=== PATIENT | male | born 1955 | race Caucasian/White ===

== ENCOUNTER 2018-06-14 15:22 | Emergency (ER) | payer MEDICAID ==
[~2018-06-14 15:22] MED LIST: INSU100V11 SQ; OMEP20CA4 PO
== END 2018-06-14 16:35 | disposition left against medical advice (07) ==
LOC: ER 15:24
DX: Z53.21 Procedure and treatment not carried out due to patient leaving prior to being seen by health care provider (principal)

== ENCOUNTER 2018-06-22 15:08 | Emergency (ER) | payer MEDICAID ==
[~2018-06-22] VITALS: Ht 167.6 cm; Wt 61.0 kg
[2018-06-22] MEDS ORDERED: INSU100V10 SQ (15:22)
--- NOTE | 2018-06-22 15:22 | NUR ---
Dr. Hawkins at bedside to examine patient.
[2018-06-22] MEDS ORDERED: IBUPROFEN 600 MG TABLET PO ONE (15:30)
[2018-06-22] MEDS ORDERED: IBUPROFEN 600 MG TABLET ONE (15:35)
[2018-06-22 15:38] LABS: *BILIRUBIN,URIN NEGATIVE (NEGATIVE); *BLOOD, URINE NEGATIVE (NEGATIVE); *CLARITY,URINE CLEAR (CLEAR); *COLOR,URINE DARK YELLOW (YELLOW); *KETONES,URINE TRACE (NEGATIVE); *PROTEIN,URINE TRACE (NEGATIVE); *UROBILINOGEN,URINE 0.2 E.U./dl (NORMAL); LEUKOCYTE ESTERASE ,URINE NEGATIVE (NEGATIVE); NITRITE, URINE NEGATIVE (NEGATIVE); UGLUCOSE TRACE (NEGATIVE)
[2018-06-22 15:41] LABS: BASOPHILS % (AUTO) 0.6 % (0.0-2.0); EOSINOPHILS % (AUTO) 0.9 % (0.0-7.0); HEMATOCRIT 42.4 % (36.7-47.1); HEMOGLOBIN 14.3 g/dL (12.5-16.3); LYMPHOCYTES # (AUTO) 1.5 K/uL (20.0-40.0); LYMPHOCYTES % (AUTO) 29.7 % (20.5-51.5); MEAN CORPUSCULAR HEMOGLOBIN 28.3 uug (23.8-33.4); MEAN CORPUSCULAR HGB CONC 34 g/dL (32.5-36.3); MEAN CORPUSCULAR VOLUME 83.9 fL (73.0-96.2); MONOCYTES # (AUTO) 0.4 K/uL (2.0-10.0); MONOCYTES % (AUTO) 7.5 % (0.0-11.0); NEUTROPHILS # (AUTO) 3.2 K/uL (1.8-8.9); NEUTROPHILS % (AUTO) 61.3 % (38.5-71.5); PLATELET COUNT (AUTO) 175 K/uL (152-348); RED BLOOD CELL COUNT(AUTO) 5.05 MIL/uL (4.06-5.63); WHITE BLOOD COUNT (AUTO) 5.1 K/uL (3.6-10.2)
[2018-06-22 15:53] LABS: BILIRUBIN,DIRECT 0.2 mg/dL (0.0-0.2); BILIRUBIN,TOTAL 0.8 mg/dL (0.2-1.0); CREATININE 1.3 mg/dL (0.6-1.3); POTASSIUM 4.5 mmol/L (3.5-5.1)
--- NOTE | 2018-06-22 16:31 | NUR ---
Dcd instructions and prescription provided to pt. who verbalized understanding. pt. left room ambulatory, steady gait.
[2018-06-22 16:35] LABS: BACTERIA,URINE FEW /HPF (NONE SEEN); RBC,URINE 0-3 /HPF (0-3); SQUAMOUS EPITHELIAL CELL,UR FEW /HPF (NONE SEEN); WBC,URINE 0-3 /HPF (0-3)
== END 2018-06-22 16:58 | disposition home or self-care (01) ==
LOC: ER 15:10
DX: R10.9 Unspecified abdominal pain (principal); B48.8 Other specified mycoses; E11.9 Type 2 diabetes mellitus without complications; Z88.0 Allergy status to penicillin
CPT/HCPCS: 36415; 83690; 85025; A4663

== ENCOUNTER 2019-02-13 17:38 | Emergency (ER) | payer SELFPAY ==
[~2019-02-13] VITALS: Ht 167.6 cm; Wt 60.8 kg
[~2019-02-13 17:38] MED LIST changes: +INSU100V10 SQ; -INSU100V11 SQ
[2019-02-13] MEDS ORDERED: ONDANSETRON 4 MG/2 ML VIAL ONE (18:14)
[2019-02-13] MEDS ORDERED: MORPHINE SULFATE 4 MG/1 ML DISP.SYRIN ONE (18:14)
[2019-02-13] MEDS ORDERED: ONDANSETRON IV *ER 4 MG/2 ML VIAL IV ONE (18:15)
[2019-02-13] MEDS ORDERED: IV NORMAL SALINE 1000 ML BAG IV ONE ×3 (18:15→19:15)
[2019-02-13] MEDS ORDERED: MORPHINE SULFATE 4 MG/1 ML DISP.SYRIN IV ONE (18:15)
[2019-02-13] MEDS ORDERED: HUMALOG INSULIN SQ (18:21)
[2019-02-13] MEDS ORDERED: INSU100I26 SQ (18:21)
[2019-02-13 18:26] LABS: BASOPHILS % (AUTO) 0.3 % (0.0-2.0); EOSINOPHILS # (AUTO) 0.1 K/uL (0.0-0.7); EOSINOPHILS % (AUTO) 1.8 % (0.0-7.0); HEMATOCRIT 38.4 % (36.7-47.1); HEMOGLOBIN 13.4 g/dL (12.5-16.3); LYMPHOCYTES # (AUTO) 1.3 K/uL (20.0-40.0); LYMPHOCYTES % (AUTO) 26.3 % (20.5-51.5); MEAN CORPUSCULAR HEMOGLOBIN 28.3 uug (23.8-33.4); MEAN CORPUSCULAR HGB CONC 35 g/dL (32.5-36.3); MEAN CORPUSCULAR VOLUME 81.4 fL (73.0-96.2); MONOCYTES # (AUTO) 0.4 K/uL (2.0-10.0); NEUTROPHILS # (AUTO) 3.2 K/uL (1.8-8.9); NEUTROPHILS % (AUTO) 63.6 % (38.5-71.5); PLATELET COUNT (AUTO) 182 K/uL (152-348); RED BLOOD CELL COUNT(AUTO) 4.72 MIL/uL (4.06-5.63); WHITE BLOOD COUNT (AUTO) 5.1 K/uL (3.6-10.2)
[2019-02-13 18:40] LABS: BILIRUBIN,DIRECT 0.2 mg/dL (0.0-0.2); BILIRUBIN,TOTAL 0.7 mg/dL (0.2-1.0); CREATININE 1.2 mg/dL (0.6-1.3); POTASSIUM 4.7 mmol/L (3.5-5.1); TOTAL PROTEIN, SERUM 6.3 g/dL (6.4-8.2)
--- NOTE | 2019-02-13 19:00 | NUR ---
Patient here for c/o constipation and being unable to hold any food or clear liquids down. Patient has hx of gastroparesis. Patient came today for pain in upper abdomen quadrants. Last bowel movement was about 4 days ago, small and soft consistency. Respiratory even and unlabored, no cough no sob. No cardiovascular distress noted, all pulses palpable. Patient in bed at lowest position, sr upx2, call light within reach. Fall precautions implemented per protocol.
[2019-02-13] MEDS ORDERED: PANTOPRAZOLE SODIUM 40 MG VIAL IV ONE (19:15)
[2019-02-13] MEDS ORDERED: PANTOPRAZOLE SODIUM 40 MG VIAL ONE (19:25)
[2019-02-13 19:33] LABS: *BILIRUBIN,URIN NEGATIVE (NEGATIVE); *BLOOD, URINE NEGATIVE (NEGATIVE); *CLARITY,URINE CLEAR (CLEAR); *COLOR,URINE YELLOW (YELLOW); *KETONES,URINE NEGATIVE (NEGATIVE); *UROBILINOGEN,URINE 0.2 E.U./dl (NORMAL); LEUKOCYTE ESTERASE ,URINE NEGATIVE (NEGATIVE); NITRITE, URINE NEGATIVE (NEGATIVE); PH,URINE 6.5 (5.0-8.0); UGLUCOSE 2+ (NEGATIVE)
[2019-02-13 19:39] LABS: WBC,URINE 0-3 /HPF (0-3)
[2019-02-13 19:40] LABS: MUCUS,URINE MODERATE /LPF (0-FEW)
--- NOTE | 2019-02-13 20:01 | NUR ---
Patient transfered to CT, in stable condition.
--- NOTE | 2019-02-13 20:09 | NUR ---
Patient back in room from CT, in stable condition.
--- NOTE | 2019-02-13 21:10 | NUR ---
Patient discharged to home in stable conditon. Written and verbal after care instructions given. Patient verbalizes understanding of instructions. Patient ambulated with stable gait.
[2019-02-13 21:18] VITALS: BP 132/89
== END 2019-02-13 21:19 | disposition home or self-care (01) ==
LOC: ER 17:39
DX: K59.00 Constipation, unspecified (principal); E11.9 Type 2 diabetes mellitus without complications; Z88.0 Allergy status to penicillin; Z79.4 Long term (current) use of insulin; Z79.899 Other long term (current) drug therapy
CPT/HCPCS: 36415; 74176; 80048; 80076; 81001; 83690; 84484; 85025; 93005; 96374; 99284; C9113; 70030-TC; A4663; J2270; J2405; J7030

== ENCOUNTER 2019-03-14 15:45 | Emergency (ER) | payer OTHER ==
[~2019-03-14] VITALS: Ht 167.6 cm; Wt 58.5 kg
[~2019-03-14 15:45] MED LIST changes: +HUMALOG INSULIN SQ; +INSU100I26 SQ; -INSU100V10 SQ; -OMEP20CA4 PO
[2019-03-14] MEDS ORDERED: ONDANSETRON 4 MG/2 ML VIAL IV ONE (16:15)
[2019-03-14] MEDS ORDERED: PANTOPRAZOLE SODIUM 40 MG VIAL IV ONE (16:15)
[2019-03-14] MEDS ORDERED: IV NORMAL SALINE 1000 ML BAG IV ONE (16:15)
[2019-03-14 16:35] LABS: BASOPHILS % (AUTO) 0.5 % (0.0-2.0); EOSINOPHILS # (AUTO) 0.2 K/uL (0.0-0.7); EOSINOPHILS % (AUTO) 3.1 % (0.0-7.0); HEMATOCRIT 40.1 % (36.7-47.1); HEMOGLOBIN 13.3 g/dL (12.5-16.3); LYMPHOCYTES # (AUTO) 1.7 K/uL (20.0-40.0); LYMPHOCYTES % (AUTO) 24.3 % (20.5-51.5); MEAN CORPUSCULAR HEMOGLOBIN 27.1 uug (23.8-33.4); MEAN CORPUSCULAR HGB CONC 33 g/dL (32.5-36.3); MONOCYTES # (AUTO) 0.5 K/uL (2.0-10.0); MONOCYTES % (AUTO) 7.8 % (0.0-11.0); NEUTROPHILS # (AUTO) 4.4 K/uL (1.8-8.9); NEUTROPHILS % (AUTO) 64.3 % (38.5-71.5); PLATELET COUNT (AUTO) 174 K/uL (152-348); WHITE BLOOD COUNT (AUTO) 6.8 K/uL (3.6-10.2)
[2019-03-14 16:37] LABS: CREATININE 1.2 mg/dL (0.6-1.3); POTASSIUM 4.4 mmol/L (3.5-5.1)
[2019-03-14] MEDS ORDERED: ONDANSETRON 4 MG/2 ML VIAL ONE (16:39)
[2019-03-14] MEDS ORDERED: PANTOPRAZOLE SODIUM 40 MG VIAL ONE (16:39)
[2019-03-14 16:43] LABS: BILIRUBIN,DIRECT 0.2 mg/dL (0.0-0.2); TOTAL PROTEIN, SERUM 6.3 g/dL (6.4-8.2)
--- NOTE | 2019-03-14 17:04 | NUR ---
PT IS IN ROOM #2A. DR BRANDON EVALUATED THE PT.
[2019-03-14] MEDS ORDERED: MAG HYDROX/AL HYDROX/SIMETH 30 ML LIQUID UDC PO ONE (17:15)
[2019-03-14] MEDS ORDERED: MAG HYDROX/AL HYDROX/SIMETH 30 ML LIQUID UDC ONE (18:00)
--- NOTE | 2019-03-14 18:45 | NUR ---
PT WAS D/C'd TO HOME. D/C INSTRUCTIONS GIVEN TO THE PT.
[2019-03-14 18:47] VITALS: BP 136/72
== END 2019-03-14 18:48 | disposition home or self-care (01) ==
LOC: ER 15:45
DX: K59.00 Constipation, unspecified (principal); R19.7 Diarrhea, unspecified; E11.9 Type 2 diabetes mellitus without complications; Z88.0 Allergy status to penicillin; Z79.4 Long term (current) use of insulin
CPT/HCPCS: 36415; 74021; 80048; 80076; 83690; 84484; 85025; 85730; 93005; 96361; 96374; 96375; 99284; C9113; J2405; 70030-TC; A4663; J7030

== ENCOUNTER 2019-04-22 16:52 | Emergency (ER) | payer MEDICAID, OTHER ==
[~2019-04-22] VITALS: Ht 165.1 cm; Wt 62.6 kg
[2019-04-22] MEDS ORDERED: IBUPROFEN 600 MG TABLET PO ONE (17:15)
[2019-04-22] MEDS ORDERED: ACETAMINOPHEN 325 MG TABLET PO ONE (17:15)
[2019-04-22] MEDS ORDERED: IBUPROFEN 600 MG TABLET ONE (17:19)
[2019-04-22] MEDS ORDERED: ACETAMINOPHEN ES 500 MG TABLET ONE (17:19)
--- NOTE | 2019-04-22 17:25 | NUR ---
PATIENT WAS SEEN BY MD. XRAYS DONE. MEDS GIVEN ORDERED
--- NOTE | 2019-04-22 19:17 | NUR ---
HAND OFF REPORT GIVEN TO DAMIEN BROWN
[2019-04-22 19:36] VITALS: BP 118/80
--- NOTE | 2019-04-22 19:52 | NUR ---
Patient discharged to home in stable conditon WITH FAMILY TAKING PATIENT HOME. Written and verbal after care instructions given. Patient verbalizes understanding of instructions. WALKED OUT OF ER WITH NO DISTRESS NOTED
== END 2019-04-22 19:53 | disposition home or self-care (01) ==
LOC: ER 16:54
DX: S22.058A Other fracture of T5-T6 vertebra, initial encounter for closed fracture (principal); S22.078A Other fracture of T9-T10 vertebra, initial encounter for closed fracture; E11.9 Type 2 diabetes mellitus without complications; Z88.0 Allergy status to penicillin; Z79.4 Long term (current) use of insulin; W01.0XXA Fall on same level from slipping, tripping and stumbling without subsequent striking against object, initial encounter; Y93.89 Activity, other specified; Y92.89 Other specified places as the place of occurrence of the external cause; Y99.8 Other external cause status
CPT/HCPCS: 71045; 72072; 72100; A4663; A9150

== ENCOUNTER 2019-05-14 14:05 | Emergency (ER) | payer OTHER ==
[~2019-05-14] VITALS: Ht 167.6 cm; Wt 62.1 kg
--- NOTE | 2019-05-14 14:20 | NUR ---
in room 1b
--- NOTE | 2019-05-14 14:27 | NUR ---
seen by Dr. Flores
[2019-05-14] MEDS ORDERED: ONDANSETRON 4 MG/2 ML VIAL IV ONE (14:30)
[2019-05-14] MEDS ORDERED: IV NORMAL SALINE 1000 ML BAG IV ONE (14:30)
--- NOTE | 2019-05-14 14:35 | NUR ---
IV #20 inserted via left AC. blood drawn for labs
--- NOTE | 2019-05-14 14:46 | NUR ---
IV NS 1l started IV and zofran 4mg given IV
[2019-05-14 14:47] LABS: BASOPHILS % (AUTO) 0.6 % (0.0-2.0); EOSINOPHILS # (AUTO) 0.2 K/uL (0.0-0.7); EOSINOPHILS % (AUTO) 2.5 % (0.0-7.0); HEMATOCRIT 40.7 % (36.7-47.1); HEMOGLOBIN 13.6 g/dL (12.5-16.3); LYMPHOCYTES # (AUTO) 1.3 K/uL (20.0-40.0); LYMPHOCYTES % (AUTO) 21.6 % (20.5-51.5); MEAN CORPUSCULAR HEMOGLOBIN 27.4 uug (23.8-33.4); MEAN CORPUSCULAR HGB CONC 33 g/dL (32.5-36.3); MONOCYTES # (AUTO) 0.4 K/uL (2.0-10.0); MONOCYTES % (AUTO) 7.1 % (0.0-11.0); NEUTROPHILS # (AUTO) 4.2 K/uL (1.8-8.9); NEUTROPHILS % (AUTO) 68.2 % (38.5-71.5); PLATELET COUNT (AUTO) 216 K/uL (152-348); RED BLOOD CELL COUNT(AUTO) 4.96 MIL/uL (4.06-5.63); WHITE BLOOD COUNT (AUTO) 6.2 K/uL (3.6-10.2)
[2019-05-14] MEDS ORDERED: ONDANSETRON 4 MG/2 ML VIAL ONE (14:47)
[2019-05-14 14:51] LABS: CREATININE 1.2 mg/dL (0.6-1.3); POTASSIUM 4.2 mmol/L (3.5-5.1)
[2019-05-14 14:58] LABS: BILIRUBIN,DIRECT 0.1 mg/dL (0.0-0.2); BILIRUBIN,TOTAL 0.5 mg/dL (0.2-1.0); TOTAL PROTEIN, SERUM 6.8 g/dL (6.4-8.2)
--- NOTE | 2019-05-14 15:40 | NUR ---
moved to 2b , denies nausea and abd pain
--- NOTE | 2019-05-14 16:19 | NUR ---
ambulated to bathroom/ voided
--- NOTE | 2019-05-14 16:20 | NUR ---
exit care, homegoing instructions and prescription given to patient. discharged
[2019-05-14 16:23] VITALS: BP 134/73
== END 2019-05-14 16:23 | disposition home or self-care (01) ==
LOC: ER 14:05
DX: R10.13 Epigastric pain (principal); R11.0 Nausea; R19.7 Diarrhea, unspecified; E11.9 Type 2 diabetes mellitus without complications; Z88.0 Allergy status to penicillin; Z79.4 Long term (current) use of insulin
CPT/HCPCS: 36415; 80048; 80076; 83690; 85025; 96361; 96374; 99283; J2405; A4663; J7030

== ENCOUNTER 2019-06-21 22:32 | Emergency (ER) | payer OTHER ==
[~2019-06-21] VITALS: Ht 167.6 cm; Wt 61.7 kg
[2019-06-21 22:58] LABS: BASOPHILS % (AUTO) 0.4 % (0.0-2.0); EOSINOPHILS # (AUTO) 0.1 K/uL (0.0-0.7); EOSINOPHILS % (AUTO) 1.4 % (0.0-7.0); HEMATOCRIT 41.1 % (36.7-47.1); HEMOGLOBIN 14.1 g/dL (12.5-16.3); LYMPHOCYTES # (AUTO) 2.2 K/uL (20.0-40.0); LYMPHOCYTES % (AUTO) 34.3 % (20.5-51.5); MEAN CORPUSCULAR HEMOGLOBIN 28.4 uug (23.8-33.4); MEAN CORPUSCULAR HGB CONC 34 g/dL (32.5-36.3); MEAN CORPUSCULAR VOLUME 82.7 fL (73.0-96.2); MONOCYTES # (AUTO) 0.5 K/uL (2.0-10.0); MONOCYTES % (AUTO) 8.4 % (0.0-11.0); NEUTROPHILS # (AUTO) 3.5 K/uL (1.8-8.9); NEUTROPHILS % (AUTO) 55.5 % (38.5-71.5); PLATELET COUNT (AUTO) 186 K/uL (152-348); RED BLOOD CELL COUNT(AUTO) 4.97 MIL/uL (4.06-5.63); WHITE BLOOD COUNT (AUTO) 6.3 K/uL (3.6-10.2)
--- NOTE | 2019-06-21 22:58 | NUR ---
Transferred to CT in stable condition.
--- NOTE | 2019-06-21 23:15 | NUR ---
Patient back in room from CT in stable condition.
[2019-06-21 23:33] LABS: CREATININE 1.4 mg/dL (0.6-1.3); POTASSIUM 3.8 mmol/L (3.5-5.1)
[2019-06-21 23:39] LABS: BILIRUBIN,DIRECT 0.1 mg/dL (0.0-0.2); BILIRUBIN,TOTAL 0.5 mg/dL (0.2-1.0); TOTAL PROTEIN, SERUM 7.2 g/dL (6.4-8.2)
[2019-06-21] MEDS ORDERED: LORAZEPAM 2 MG/1 ML VIAL ONE (23:43)
[2019-06-21] MEDS ORDERED: LORAZEPAM 2 MG/1 ML VIAL IV ONE (23:45)
--- NOTE | 2019-06-22 00:12 | NUR ---
Patient discharged to home in stable conditon. Written and verbal after care instructions given. Patient verbalizes understanding of instructions. Patient ambulated with stable gait. Instructed patient that he may not drive. Mother stated she will be driving them home.
[2019-06-22 00:14] VITALS: BP 122/87
== END 2019-06-22 00:15 | disposition home or self-care (01) ==
LOC: ER 22:32
DX: M43.6 Torticollis (principal); G44.209 Tension-type headache, unspecified, not intractable; E11.9 Type 2 diabetes mellitus without complications; Z88.0 Allergy status to penicillin; Z79.4 Long term (current) use of insulin
CPT/HCPCS: 36415; 70450; 71045; 72125; 80048; 80076; 84484; 85025; 85651; 85730; 93005; 96374; 99284; J2060; 70030-TC; A4663

== ENCOUNTER 2019-07-25 14:10 | Emergency (ER) | payer MEDICARE, OTHER ==
[~2019-07-25] VITALS: Ht 167.6 cm; Wt 62.1 kg
[2019-07-25 14:53] LABS: *BILIRUBIN,URIN NEGATIVE (NEGATIVE); *BLOOD, URINE NEGATIVE (NEGATIVE); *CLARITY,URINE CLEAR (CLEAR); *COLOR,URINE YELLOW (YELLOW); *KETONES,URINE NEGATIVE (NEGATIVE); *UROBILINOGEN,URINE 0.2 E.U./dl (NORMAL); LEUKOCYTE ESTERASE ,URINE NEGATIVE (NEGATIVE); NITRITE, URINE NEGATIVE (NEGATIVE); PH,URINE 6.5 (5.0-8.0); UGLUCOSE TRACE (NEGATIVE)
[2019-07-25 15:00] LABS: WBC,URINE 0-3 /HPF (0-3)
== END 2019-07-25 15:25 | disposition home or self-care (01) ==
LOC: ER 14:11
DX: K40.90 Unilateral inguinal hernia, without obstruction or gangrene, not specified as recurrent (principal); E11.9 Type 2 diabetes mellitus without complications; Z88.0 Allergy status to penicillin; Z79.4 Long term (current) use of insulin
CPT/HCPCS: A4663

== ENCOUNTER 2020-03-11 05:35 | Emergency (ER) | payer OTHER ==
[~2020-03-11] VITALS: Ht 167.6 cm; Wt 58.5 kg
--- NOTE | 2020-03-11 05:42 | NUR ---
Dr. Valdez at bedside for MSE.
--- NOTE | 2020-03-11 05:50 | NUR ---
Xray at bedside.
--- NOTE | 2020-03-11 06:27 | NUR ---
Patient discharged to home in stable condition. Written and verbal after care instructions given. Patient verbalizes understanding of instructions. Stressed follow up or return to ER for worsening s/s. Patient ambulated out of ER with steady gait, no acute signs of distress, VSS, all belongings taken.
[2020-03-11 06:28] VITALS: BP 130/78
== END 2020-03-11 06:28 | disposition home or self-care (01) ==
LOC: ER 05:39
DX: K56.41 Fecal impaction (principal); E11.43 Type 2 diabetes mellitus with diabetic autonomic (poly)neuropathy; K31.84 Gastroparesis; Z79.4 Long term (current) use of insulin; G20 Parkinson's disease
CPT/HCPCS: A4663

== ENCOUNTER 2020-11-05 20:06 | Emergency (ER) | payer OTHER ==
[~2020-11-05] VITALS: Ht 167.6 cm; Wt 59.0 kg
--- NOTE | 2020-11-05 20:11 | NUR ---
Patient BIB [facility] from home for c/o constipation x36hrs. Patient states he has tried laxative such as suppository and po laxative but not effective. Dr Valdez into eval patient.
[2020-11-05] MEDS ORDERED: PANTOPRAZOLE SODIUM 40 MG VIAL IV ONE (20:15)
[2020-11-05] MEDS ORDERED: ONDANSETRON 4 MG/2 ML VIAL IV ONE (20:15)
[2020-11-05] MEDS ORDERED: ONDANSETRON 4 MG/2 ML VIAL ONE (20:28)
[2020-11-05] MEDS ORDERED: PANTOPRAZOLE SODIUM 40 MG VIAL ONE (20:28)
[2020-11-05 20:29] LABS: BASOPHILS % (AUTO) 0.4 % (0.0-2.0); EOSINOPHILS # (AUTO) 0.1 K/uL (0.0-0.7); EOSINOPHILS % (AUTO) 0.9 % (0.0-7.0); HEMATOCRIT 41.5 % (36.7-47.1); HEMOGLOBIN 14.2 g/dL (12.5-16.3); LYMPHOCYTES # (AUTO) 1.2 K/uL (20.0-40.0); LYMPHOCYTES % (AUTO) 19.5 % (20.5-51.5); MEAN CORPUSCULAR HEMOGLOBIN 27.9 uug (23.8-33.4); MEAN CORPUSCULAR HGB CONC 34 g/dL (32.5-36.3); MEAN CORPUSCULAR VOLUME 81.7 fL (73.0-96.2); MONOCYTES # (AUTO) 0.5 K/uL (2.0-10.0); MONOCYTES % (AUTO) 7.4 % (0.0-11.0); NEUTROPHILS # (AUTO) 4.5 K/uL (1.8-8.9); NEUTROPHILS % (AUTO) 71.8 % (38.5-71.5); PLATELET COUNT (AUTO) 218 K/uL (152-348); RED BLOOD CELL COUNT(AUTO) 5.08 MIL/uL (4.06-5.63); WHITE BLOOD COUNT (AUTO) 6.3 K/uL (3.6-10.2)
[2020-11-05 20:39] LABS: BILIRUBIN,DIRECT 0.2 mg/dL (0.0-0.2); BILIRUBIN,TOTAL 1.1 mg/dL (0.2-1.0); CREATININE 1.4 mg/dL (0.6-1.3); POTASSIUM 4.4 mmol/L (3.5-5.1)
[2020-11-05] MEDS ORDERED: IV NORMAL SALINE 1000 ML BAG IV ONE (20:45)
[2020-11-05 21:22] LABS: ABG BASE EXCESS -2.2 mmol/L; ABG HCO3 21.9 mmol/L; ABG PCO2 35.5 mmHg (35.0-45.0); ABG PH 7.408 (7.350-7.450); ABG PO2 85.8 mmHg (75.0-100.0); ABG SITE LEFT RADIAL; ABG TOTAL HEMOGLOBIN 12.9 G/dL (13.5-18.0); COHb 1.3 % (0.5-1.5); MetHb 0.3 % (0.0-1.5); O2Hb 95.2 % (94.0-97.0); VENT MODE ROOM AIR
--- NOTE | 2020-11-05 21:25 | NUR ---
Patient out of unit for ct scan via wheelchair.
--- NOTE | 2020-11-05 21:35 | NUR ---
Patient back from ct scan with no distress noted.
[2020-11-05 21:46] LABS: *BILIRUBIN,URIN NEGATIVE (NEGATIVE); *BLOOD, URINE NEGATIVE (NEGATIVE); *CLARITY,URINE CLEAR (CLEAR); *COLOR,URINE YELLOW (YELLOW); *KETONES,URINE 1+ (NEGATIVE); *UROBILINOGEN,URINE 0.2 E.U./dl (NORMAL); LEUKOCYTE ESTERASE ,URINE NEGATIVE (NEGATIVE); NITRITE, URINE NEGATIVE (NEGATIVE); UGLUCOSE 2+ (NEGATIVE)
--- NOTE | 2020-11-05 22:04 | NUR ---
Patient able to have BM after Dr Valdez disimpacted pateint.
--- NOTE | 2020-11-05 22:28 | NUR ---
IV removed. Catheter intact and site benign. Pressure and 4x4 gauze applied to site. No bleeding noted.
[2020-11-05] MEDS ORDERED: MAGNESIUM CITRATE 296 ML BOTTLE PO ONE (22:30)
[2020-11-05] MEDS ORDERED: MAGNESIUM CITRATE 296 ML BOTTLE ONE (22:30)
--- NOTE | 2020-11-05 22:32 | NUR ---
Patient discharged to home in stable condition with patient mother taking patient home. Written and verbal after care instructions given. Patient verbalizes understanding of instructions. Stressed follow up or return to ER for worsening s/s.
[2020-11-05 22:33] VITALS: BP 150/82
== END 2020-11-05 22:36 | disposition home or self-care (01) ==
LOC: ER 20:08
DX: K56.41 Fecal impaction (principal); K21.9 Gastro-esophageal reflux disease without esophagitis; R11.10 Vomiting, unspecified; E11.65 Type 2 diabetes mellitus with hyperglycemia; Z79.4 Long term (current) use of insulin; Z88.0 Allergy status to penicillin; E11.43 Type 2 diabetes mellitus with diabetic autonomic (poly)neuropathy; K31.84 Gastroparesis; G20 Parkinson's disease
CPT/HCPCS: 36415; 36600; 71045; 74176; 80048; 80076; 81003; 82009; 83690; 84484; 85025; 93005; 96374; 96375; 99285; C9113; J2405; 70030-TC; A4663; J7030

== ENCOUNTER 2020-11-18 05:05 | Emergency (ER) | payer OTHER ==
[~2020-11-18] VITALS: Ht 167.6 cm; Wt 63.5 kg
[2020-11-18] MEDS ORDERED: LORAZEPAM 2 MG/1 ML VIAL IM ONE (05:30)
[2020-11-18] MEDS ORDERED: FAMOTIDINE 20 MG TABLET PO ONE (05:30)
[2020-11-18] MEDS ORDERED: ONDANSETRON ODT 4 MG TAB.RAPDIS SL ONE (05:30)
[2020-11-18] MEDS ORDERED: ASPIRIN 325 MG TABLET PO ONE (05:30)
[2020-11-18] MEDS ORDERED: LORAZEPAM 2 MG/1 ML VIAL ONE (05:35)
[2020-11-18] MEDS ORDERED: ASPIRIN 325 MG TABLET ONE (05:37)
[2020-11-18] MEDS ORDERED: ONDANSETRON ODT 4 MG TAB.RAPDIS ONE (05:37)
[2020-11-18] MEDS ORDERED: FAMOTIDINE 20 MG TABLET ONE (05:37)
[2020-11-18 05:42] LABS: BASOPHILS % (AUTO) 0.4 % (0.0-2.0); EOSINOPHILS # (AUTO) 0.1 K/uL (0.0-0.7); HEMATOCRIT 41.7 % (36.7-47.1); HEMOGLOBIN 14.4 g/dL (12.5-16.3); LYMPHOCYTES # (AUTO) 2.1 K/uL (20.0-40.0); LYMPHOCYTES % (AUTO) 30.7 % (20.5-51.5); MEAN CORPUSCULAR HEMOGLOBIN 28.3 uug (23.8-33.4); MEAN CORPUSCULAR HGB CONC 35 g/dL (32.5-36.3); MEAN CORPUSCULAR VOLUME 81.9 fL (73.0-96.2); MONOCYTES # (AUTO) 0.6 K/uL (2.0-10.0); NEUTROPHILS # (AUTO) 3.9 K/uL (1.8-8.9); NEUTROPHILS % (AUTO) 58.9 % (38.5-71.5); PLATELET COUNT (AUTO) 224 K/uL (152-348); RED BLOOD CELL COUNT(AUTO) 5.09 MIL/uL (4.06-5.63); WHITE BLOOD COUNT (AUTO) 6.7 K/uL (3.6-10.2)
[2020-11-18 05:56] LABS: CREATININE 1.4 mg/dL (0.6-1.3)
[2020-11-18 06:12] LABS: BILIRUBIN,DIRECT 0.2 mg/dL (0.0-0.2); BILIRUBIN,TOTAL 0.5 mg/dL (0.2-1.0); TOTAL PROTEIN, SERUM 7.3 g/dL (6.4-8.2)
[2020-11-18] MEDS ORDERED: IV NORMAL SALINE 500 ML IV ONE (06:15)
[2020-11-18] MEDS ORDERED: INSULIN REGULAR, HUMAN 300 UNIT/3 ML VIAL SQ ONE (07:15)
[2020-11-18] MEDS ORDERED: INSULIN REGULAR, HUMAN 300 UNIT/3 ML VIAL ONE (07:17)
[2020-11-18] MEDS ORDERED: NITROGLYCERIN 0.4 MG/TAB BOTTLE SL ONE ×2 (07:23→07:28)
--- NOTE | 2020-11-18 07:25 | NUR ---
PT IS IN ROOM #1B. DR JONES EVALUATED THE PT. PT WAS MEDICATED ACCORDING TO ER MD ORDERS. PT TOLERATED TO MEDICATION WITHOUT COMPLICATIONS.
[2020-11-18] MEDS ORDERED: TRAM50TA PO (08:08)
[2020-11-18] MEDS ORDERED: PANTOPRAZOLE SODIUM 40 MG VIAL IV ONE (10:00)
[2020-11-18] MEDS ORDERED: PANTOPRAZOLE SODIUM 40 MG VIAL ONE (10:10)
--- NOTE | 2020-11-18 10:31 | NUR ---
PT WAS D/C'd TO HOME. D/C INSTRUCTIONS GIVEN TO THE PT BY DR JONES.
[2020-11-18 10:32] VITALS: BP 115/69
[2020-11-19] MEDS ORDERED: CARB-93 PO (13:02)
[2020-11-19] MEDS ORDERED: LIDO30AD10 TD (14:10)
== END 2020-11-18 10:33 | disposition home or self-care (01) ==
LOC: ER 05:06
DX: R10.13 Epigastric pain (principal); R07.89 Other chest pain; E11.65 Type 2 diabetes mellitus with hyperglycemia; G20 Parkinson's disease; K44.9 Diaphragmatic hernia without obstruction or gangrene; Z79.4 Long term (current) use of insulin; Z88.0 Allergy status to penicillin
CPT/HCPCS: 36415; 71045; 80048; 80076; 82009; 82962 ×2; 83880; 84484; 85025; 85379; 85730; 87426; 96361; 96372; 96374; 96375; 99285; C9113; J1815; J2060; 70030-TC; 93005; A4663; J7040; Q0162

== ENCOUNTER 2020-11-19 12:49 | Emergency (ER) | payer OTHER ==
[~2020-11-19] VITALS: Ht 167.6 cm; Wt 61.2 kg
[2020-11-19] MEDS ORDERED: CARB-93 PO (13:02)
--- NOTE | 2020-11-19 13:08 | NUR ---
at bedside for assessment
[2020-11-19] MEDS ORDERED: ACETAMINOPHEN 325 MG TABLET PO ONE (13:15)
[2020-11-19] MEDS ORDERED: LIDOCAINE 5% PATCH TD ONE ×2 (13:15→13:18)
[2020-11-19] MEDS ORDERED: ACETAMINOPHEN 325 MG TABLET ONE (13:17)
--- NOTE | 2020-11-19 13:20 | NUR ---
laceration to right side of head irrigated with normal saline
[2020-11-19] MEDS ORDERED: LIDO30AD10 TD (14:10)
--- NOTE | 2020-11-19 14:22 | NUR ---
Patient discharged to home in stable condition. Patient able to ambulate with steady gait, states ihs mother will pick him up. Written and verbal after care instructions given. Patient verbalizes understanding of instructions. Stressed follow up or return to ER for worsening s/s.
[2020-11-19 14:26] VITALS: BP 100/65
[2020-11-20] MEDS ORDERED: OXYC-128 PO (21:25)
== END 2020-11-19 14:24 | disposition home or self-care (01) ==
LOC: ER 12:51
DX: S00.93XA Contusion of unspecified part of head, initial encounter (principal); S20.211A Contusion of right front wall of thorax, initial encounter; W18.39XA Other fall on same level, initial encounter; Y93.89 Activity, other specified; Y92.89 Other specified places as the place of occurrence of the external cause; Y99.8 Other external cause status; G20 Parkinson's disease; K21.9 Gastro-esophageal reflux disease without esophagitis; E11.43 Type 2 diabetes mellitus with diabetic autonomic (poly)neuropathy; K31.84 Gastroparesis; Z88.0 Allergy status to penicillin; Z79.899 Other long term (current) drug therapy; Z79.4 Long term (current) use of insulin
CPT/HCPCS: 70450; 71101; A4217; A4663

== ENCOUNTER 2020-11-20 17:49 | Emergency (ER) | payer OTHER ==
[~2020-11-20] VITALS: Ht 167.6 cm; Wt 59.0 kg
[~2020-11-20 17:49] MED LIST changes: +CARB-93 PO; +LIDO30AD10 TD
--- NOTE | 2020-11-20 18:34 | NUR ---
Dr Romero at the bedside for MSE.
[2020-11-20] MEDS ORDERED: INSULIN REGULAR, HUMAN 300 UNIT/3 ML VIAL IV ONE (18:45)
[2020-11-20] MEDS ORDERED: IV NORMAL SALINE 1000 ML BAG IV ONE (18:45)
[2020-11-20] MEDS ORDERED: LORAZEPAM 2 MG/1 ML VIAL IV ONE (18:45)
--- NOTE | 2020-11-20 18:58 | NUR ---
Pt out of ER for xray.
--- NOTE | 2020-11-20 19:00 | NUR ---
Received patient from AM nurse.
[2020-11-20] MEDS ORDERED: LORAZEPAM 2 MG/1 ML VIAL ONE (19:09)
[2020-11-20] MEDS ORDERED: INSULIN REGULAR, HUMAN 300 UNIT/3 ML VIAL ONE (19:10)
[2020-11-20 19:39] LABS: BASOPHILS % (AUTO) 0.3 % (0.0-2.0); EOSINOPHILS # (AUTO) 0.1 K/uL (0.0-0.7); EOSINOPHILS % (AUTO) 0.7 % (0.0-7.0); HEMATOCRIT 40.7 % (36.7-47.1); HEMOGLOBIN 14.2 g/dL (12.5-16.3); LYMPHOCYTES # (AUTO) 1.7 K/uL (20.0-40.0); LYMPHOCYTES % (AUTO) 21.2 % (20.5-51.5); MEAN CORPUSCULAR HEMOGLOBIN 28.7 uug (23.8-33.4); MEAN CORPUSCULAR HGB CONC 35 g/dL (32.5-36.3); MEAN CORPUSCULAR VOLUME 82.1 fL (73.0-96.2); MONOCYTES # (AUTO) 0.6 K/uL (2.0-10.0); MONOCYTES % (AUTO) 7.3 % (0.0-11.0); NEUTROPHILS # (AUTO) 5.6 K/uL (1.8-8.9); NEUTROPHILS % (AUTO) 70.5 % (38.5-71.5); PLATELET COUNT (AUTO) 242 K/uL (152-348); RED BLOOD CELL COUNT(AUTO) 4.96 MIL/uL (4.06-5.63)
[2020-11-20 19:47] LABS: BILIRUBIN,DIRECT 0.2 mg/dL (0.0-0.2); BILIRUBIN,TOTAL 0.7 mg/dL (0.2-1.0); CREATININE 1.4 mg/dL (0.6-1.3); POTASSIUM 5.1 mmol/L (3.5-5.1)
[2020-11-20 20:59] LABS: *BILIRUBIN,URIN NEGATIVE (NEGATIVE); *BLOOD, URINE NEGATIVE (NEGATIVE); *CLARITY,URINE CLEAR (CLEAR); *COLOR,URINE YELLOW (YELLOW); *KETONES,URINE 2+ (NEGATIVE); *UROBILINOGEN,URINE 0.2 E.U./dl (NORMAL); LEUKOCYTE ESTERASE ,URINE NEGATIVE (NEGATIVE); NITRITE, URINE NEGATIVE (NEGATIVE); PH,URINE 5.5 (5.0-8.0); UGLUCOSE 3+ (NEGATIVE)
[2020-11-20 21:22] VITALS: BP 122/62
[2020-11-20] MEDS ORDERED: OXYC-128 PO (21:25)
--- NOTE | 2020-11-20 21:59 | NUR ---
Patient discharged to home in stable condition. A&Ox4. Written and verbal after care instructions given. Patient verbalizes understanding of instructions. Stressed follow up or return to ER for worsening s/s. Belongings with patient.
== END 2020-11-20 21:40 | disposition home or self-care (01) ==
LOC: ER 17:51
DX: E11.65 Type 2 diabetes mellitus with hyperglycemia (principal); E11.43 Type 2 diabetes mellitus with diabetic autonomic (poly)neuropathy; K31.84 Gastroparesis; Z79.4 Long term (current) use of insulin; G20 Parkinson's disease; K21.9 Gastro-esophageal reflux disease without esophagitis; R26.81 Unsteadiness on feet; Z88.0 Allergy status to penicillin; Z79.899 Other long term (current) drug therapy; R82.4 Acetonuria; K59.00 Constipation, unspecified; R53.1 Weakness; M54.9 Dorsalgia, unspecified; R53.83 Other fatigue; Z91.81 History of falling
CPT/HCPCS: 36415; 72072; 72100; 72170; 73502; 80048; 80076; 81003; 82009; 82962; 83690; 85025; 87086; 93005; 96372; 96374; 99285; J1815; J2060; A4663; J7030

== ENCOUNTER 2020-11-25 22:20 | Emergency (ER) | payer OTHER ==
[~2020-11-25] VITALS: Ht 165.1 cm; Wt 59.0 kg
[~2020-11-25 22:20] MED LIST changes: +OXYC-128 PO
[2020-11-25] MEDS ORDERED: IV NORMAL SALINE 1000 ML BAG IV ONE (22:45)
[2020-11-25 22:52] LABS: BASOPHILS % (AUTO) 0.5 % (0.0-2.0); EOSINOPHILS # (AUTO) 0.1 K/uL (0.0-0.7); EOSINOPHILS % (AUTO) 1.1 % (0.0-7.0); HEMATOCRIT 38.6 % (36.7-47.1); HEMOGLOBIN 13.2 g/dL (12.5-16.3); LYMPHOCYTES # (AUTO) 1.4 K/uL (20.0-40.0); LYMPHOCYTES % (AUTO) 24.6 % (20.5-51.5); MEAN CORPUSCULAR HGB CONC 34 g/dL (32.5-36.3); MEAN CORPUSCULAR VOLUME 81.7 fL (73.0-96.2); MONOCYTES # (AUTO) 0.5 K/uL (2.0-10.0); MONOCYTES % (AUTO) 9.3 % (0.0-11.0); NEUTROPHILS # (AUTO) 3.8 K/uL (1.8-8.9); NEUTROPHILS % (AUTO) 64.5 % (38.5-71.5); PLATELET COUNT (AUTO) 240 K/uL (152-348); RED BLOOD CELL COUNT(AUTO) 4.73 MIL/uL (4.06-5.63); WHITE BLOOD COUNT (AUTO) 5.9 K/uL (3.6-10.2)
[2020-11-25] MEDS: LORAZEPAM 2 MG/1 ML VIAL IV ONE ×2 (22:54→22:57)
[2020-11-25] MEDS ORDERED: LORAZEPAM 2 MG/1 ML VIAL ONE (22:59)
[2020-11-25] MEDS ORDERED: HYDROCODONE/APAP 5-325MG TABLET PO ONE (23:00)
[2020-11-25 23:03] LABS: CREATININE 1.3 mg/dL (0.6-1.3); POTASSIUM 4.7 mmol/L (3.5-5.1)
[2020-11-25 23:09] LABS: BILIRUBIN,DIRECT 0.1 mg/dL (0.0-0.2); BILIRUBIN,TOTAL 0.5 mg/dL (0.2-1.0); TOTAL PROTEIN, SERUM 6.7 g/dL (6.4-8.2)
[2020-11-25] MEDS ORDERED: HYDROCODONE/APAP 5-325MG TABLET ONE (23:14)
--- NOTE | 2020-11-26 01:34 | NUR ---
Patient discharged to home in stable condition. Written and verbal after care instructions given. Patient and mother verbalizes understanding of instructions. Stressed follow up or return to ER for worsening s/s.
== END 2020-11-26 01:35 | disposition home or self-care (01) ==
LOC: ER 22:24
DX: F41.9 Anxiety disorder, unspecified (principal); E86.0 Dehydration; K59.00 Constipation, unspecified; E11.65 Type 2 diabetes mellitus with hyperglycemia; E11.43 Type 2 diabetes mellitus with diabetic autonomic (poly)neuropathy; K31.84 Gastroparesis; Z79.4 Long term (current) use of insulin; Z88.0 Allergy status to penicillin; G20 Parkinson's disease
CPT/HCPCS: 36415; 71045; 80048; 80076; 82962; 84484; 85025; 93005; 96361; 96374; 99285; J2060; 70030-TC; A4663; J7030

== ENCOUNTER 2020-12-02 14:33 | Emergency (ER) | payer OTHER ==
[~2020-12-02] VITALS: Ht 167.6 cm; Wt 61.2 kg
--- NOTE | 2020-12-02 15:03 | NUR ---
PT IS IN ROOM #2B. DR CLARKE EVALUATED THE PT.
[2020-12-02 15:15] LABS: BASOPHILS % (AUTO) 0.5 % (0.0-2.0); EOSINOPHILS # (AUTO) 0.1 K/uL (0.0-0.7); EOSINOPHILS % (AUTO) 0.8 % (0.0-7.0); HEMATOCRIT 42.2 % (36.7-47.1); HEMOGLOBIN 14.2 g/dL (12.5-16.3); LYMPHOCYTES # (AUTO) 0.9 K/uL (20.0-40.0); LYMPHOCYTES % (AUTO) 14.9 % (20.5-51.5); MEAN CORPUSCULAR HGB CONC 34 g/dL (32.5-36.3); MEAN CORPUSCULAR VOLUME 82.9 fL (73.0-96.2); MONOCYTES # (AUTO) 0.3 K/uL (2.0-10.0); MONOCYTES % (AUTO) 5.5 % (0.0-11.0); NEUTROPHILS # (AUTO) 4.9 K/uL (1.8-8.9); NEUTROPHILS % (AUTO) 78.3 % (38.5-71.5); PLATELET COUNT (AUTO) 245 K/uL (152-348); RED BLOOD CELL COUNT(AUTO) 5.09 MIL/uL (4.06-5.63); WHITE BLOOD COUNT (AUTO) 6.3 K/uL (3.6-10.2)
[2020-12-02 15:24] LABS: BILIRUBIN,DIRECT 0.2 mg/dL (0.0-0.2); BILIRUBIN,TOTAL 0.7 mg/dL (0.2-1.0); CREATININE 1.4 mg/dL (0.6-1.3); POTASSIUM 4.6 mmol/L (3.5-5.1); TOTAL PROTEIN, SERUM 6.8 g/dL (6.4-8.2)
[2020-12-02 16:04] LABS: ABG BASE EXCESS 2.4 mmol/L; ABG HCO3 26.3 mmol/L; ABG PCO2 38.3 mmHg (35.0-45.0); ABG PH 7.454 (7.350-7.450); ABG PO2 95.2 mmHg (75.0-100.0); ABG SITE LEFT RADIAL; ABG TOTAL HEMOGLOBIN 13.6 G/dL (13.5-18.0); COHb 1.2 % (0.5-1.5); MetHb 0.2 % (0.0-1.5); O2Hb 96.2 % (94.0-97.0)
[2020-12-02] MEDS ORDERED: POLY17PO4 PO (16:17)
[2020-12-02] MEDS ORDERED: ACET-2154 PO (16:18)
[2020-12-02] MEDS ORDERED: LANS30CA54 PO (16:20)
--- NOTE | 2020-12-02 16:36 | NUR ---
PT WAS D/C'd TO HOME. D/C INSTRUCTIONS GIVEN TO THE PT BY DR CLARKE.
[2020-12-02 16:37] VITALS: BP 129/75
== END 2020-12-02 16:37 | disposition home or self-care (01) ==
LOC: ER 14:35
DX: K59.00 Constipation, unspecified (principal); K21.9 Gastro-esophageal reflux disease without esophagitis; E11.65 Type 2 diabetes mellitus with hyperglycemia; Z79.4 Long term (current) use of insulin; E11.43 Type 2 diabetes mellitus with diabetic autonomic (poly)neuropathy; K31.84 Gastroparesis; Z88.0 Allergy status to penicillin; G20 Parkinson's disease; E87.3 Alkalosis; G89.29 Other chronic pain; F41.9 Anxiety disorder, unspecified
CPT/HCPCS: 36415; 36600; 70030-TC; 71045; 74021; 83690; 85025; 93005; A4663

== ENCOUNTER 2020-12-22 22:59 | Emergency (ER) | payer OTHER ==
[~2020-12-22] VITALS: Ht 167.6 cm; Wt 59.0 kg
[~2020-12-22 22:59] MED LIST changes: +ACET-2154 PO; +LANS30CA54 PO; +POLY17PO4 PO
--- NOTE | 2020-12-22 23:13 | NUR ---
Dr. Man at bedside for MSE.
[2020-12-22] MEDS ORDERED: LORAZEPAM 2 MG/1 ML VIAL ONE (23:27)
[2020-12-22] MEDS ORDERED: ONDANSETRON 4 MG/2 ML VIAL ONE (23:28)
[2020-12-22] MEDS ORDERED: HYDROMORPHONE 1 MG/1 ML DISP.SYRIN ONE (23:28)
[2020-12-22] MEDS ORDERED: HYDROMORPHONE 1 MG/1 ML DISP.SYRIN IV ONE (23:30)
[2020-12-22] MEDS ORDERED: ONDANSETRON 4 MG/2 ML VIAL IV ONE (23:30)
[2020-12-22] MEDS ORDERED: LORAZEPAM 2 MG/1 ML VIAL IV ONE (23:30)
[2020-12-22] MEDS ORDERED: IV NORMAL SALINE 1000 ML BAG IV ONE (23:30)
[2020-12-22 23:39] LABS: BASOPHILS % (AUTO) 0.5 % (0.0-2.0); EOSINOPHILS # (AUTO) 0.1 K/uL (0.0-0.7); EOSINOPHILS % (AUTO) 0.9 % (0.0-7.0); HEMATOCRIT 39.9 % (36.7-47.1); HEMOGLOBIN 13.3 g/dL (12.5-16.3); LYMPHOCYTES % (AUTO) 31.2 % (20.5-51.5); MEAN CORPUSCULAR HEMOGLOBIN 27.5 uug (23.8-33.4); MEAN CORPUSCULAR HGB CONC 33 g/dL (32.5-36.3); MEAN CORPUSCULAR VOLUME 82.7 fL (73.0-96.2); MONOCYTES # (AUTO) 0.6 K/uL (2.0-10.0); MONOCYTES % (AUTO) 8.6 % (0.0-11.0); NEUTROPHILS # (AUTO) 3.8 K/uL (1.8-8.9); NEUTROPHILS % (AUTO) 58.8 % (38.5-71.5); PLATELET COUNT (AUTO) 200 K/uL (152-348); RED BLOOD CELL COUNT(AUTO) 4.82 MIL/uL (4.06-5.63); WHITE BLOOD COUNT (AUTO) 6.5 K/uL (3.6-10.2)
[2020-12-22 23:43] LABS: CREATININE 1.2 mg/dL (0.6-1.3); POTASSIUM 3.6 mmol/L (3.5-5.1)
[2020-12-22 23:49] LABS: BILIRUBIN,DIRECT 0.1 mg/dL (0.0-0.2); BILIRUBIN,TOTAL 0.4 mg/dL (0.2-1.0); TOTAL PROTEIN, SERUM 6.8 g/dL (6.4-8.2)
--- NOTE | 2020-12-22 23:50 | NUR ---
Pt out of ER for CT.
--- NOTE | 2020-12-23 00:02 | NUR ---
PT back to ER from CT.
--- NOTE | 2020-12-23 02:20 | NUR ---
Pt was difficult to arouse while his mother was trying to contact him. Upon closer assessment, patient is sweating profusely and stated unable to move. Checked blood sugar @49, MD notified.
[2020-12-23] MEDS ORDERED: DEXTROSE 50% 50 ML DISP.SYRIN IV ONE (02:30)
[2020-12-23] MEDS ORDERED: DEXTROSE 50% 50 ML DISP.SYRIN ONE (02:33)
[2020-12-23] MEDS ORDERED: ONDANSETRON 4 MG/2 ML VIAL ONE (04:11)
[2020-12-23] MEDS ORDERED: ONDANSETRON 4 MG/2 ML VIAL IV ONE (04:15)
[2020-12-23] MEDS ORDERED: FAMOTIDINE. 20 MG/2 ML VIAL IV ONE ×2 (06:45→07:06)
[2020-12-23] MEDS ORDERED: ONDANSETRON ODT 4 MG TAB.RAPDIS SL ONE (06:45)
[2020-12-23] MEDS ORDERED: ASPIRIN 81 MG TAB.CHEW PO ONE (06:45)
[2020-12-23] MEDS ORDERED: ASPIRIN 81 MG TAB.CHEW ONE (07:06)
[2020-12-23] MEDS ORDERED: ONDANSETRON ODT 4 MG TAB.RAPDIS ONE (07:06)
--- NOTE | 2020-12-23 07:14 | NUR ---
Report given to Timoteo BROWN dayshift charge.
--- NOTE | 2020-12-23 07:15 | NUR ---
Hands off report received from KEVIN Foote. Patient is seen sleeping, easily arousable, oriented x3, HACKETT, respiration :easy, sinus rhythm on monitor, denies any pains@the moment, pending ALCAZAR callback @the moment.
[2020-12-23] MEDS ORDERED: IV NS 1000 ML 1,000 ML IV ONE (08:15)
[2020-12-23 08:22] LABS: *BILIRUBIN,URIN NEGATIVE (NEGATIVE); *BLOOD, URINE NEGATIVE (NEGATIVE); *CLARITY,URINE CLEAR (CLEAR); *COLOR,URINE YELLOW (YELLOW); *KETONES,URINE TRACE (NEGATIVE); *UROBILINOGEN,URINE 0.2 E.U./dl (NORMAL); LEUKOCYTE ESTERASE ,URINE NEGATIVE (NEGATIVE); NITRITE, URINE NEGATIVE (NEGATIVE); UGLUCOSE 2+ (NEGATIVE)
--- NOTE | 2020-12-23 08:25 | NUR ---
Earlier, patient was seen ambulating to bathroom with slow steady gait, unassisted, and voided but needed assistance with the zipper of his short pants. Urine was collected & sent to lab. Patient was also heard talking loudly to his elderly mother via personal cellphone, pending disposition from our ER doctor@this time.
--- NOTE | 2020-12-23 09:00 | NUR ---
Patient Tranfers to outside Facility: [facility], ER department Physician: Aminta Location: [facility]
--- NOTE | 2020-12-23 09:04 | NUR ---
[facility] ALS ambulance (PRN unit#[id number]) stone gluer Maryana Andres accepted hands off report. Patient left ER in stable condition.
== END 2020-12-23 09:04 | disposition short-term general hospital (02) ==
LOC: ER 22:59
DX: G20 Parkinson's disease (principal); R07.9 Chest pain, unspecified; R62.7 Adult failure to thrive; Z68.21 Body mass index [BMI] 21.0-21.9, adult; R26.2 Difficulty in walking, not elsewhere classified; E11.43 Type 2 diabetes mellitus with diabetic autonomic (poly)neuropathy; K31.84 Gastroparesis; Z79.4 Long term (current) use of insulin; Z88.0 Allergy status to penicillin; Z79.899 Other long term (current) drug therapy; Z20.822 Contact with and (suspected) exposure to COVID-19
CPT/HCPCS: 36415 ×2; 70450; 71045; 80048; 80076; 81003; 82962 ×4; 83690; 84484 ×2; 85025; 87426; 93005 ×3; 96361 ×2; 96374; 96375 ×2; 96376; 99285; J1170; J2060; J2405 ×2; J3490 ×2; 70030-TC; A4663; J7030; Q0162

== ENCOUNTER 2021-01-02 16:53 | Emergency (ER) | payer OTHER ==
[~2021-01-02] VITALS: Ht 167.6 cm; Wt 59.0 kg
[~2021-01-02 16:53] MED LIST changes: +CARB-300 PO; -CARB-93 PO
[2021-01-02] MEDS ORDERED: MAGNESIUM HYDROXIDE 30 ML LIQUID UDC ONE (17:30)
[2021-01-02] MEDS ORDERED: MAGNESIUM CITRATE 296 ML BOTTLE ONE (17:31)
[2021-01-02] MEDS: MAGNESIUM HYDROXIDE 30 ML LIQUID UDC PO ONE (17:32)
[2021-01-02] MEDS: MAGNESIUM CITRATE 296 ML BOTTLE PO ONE (17:32)
--- NOTE | 2021-01-02 17:33 | NUR ---
Patient was seen by . Dr Man was able to remove 2 small pieces of stool. Then patient got up and walked to the bathroom and sat on the toilet and was able to poop out a couple more pieces of stool.
--- NOTE | 2021-01-02 18:02 | NUR ---
DC AND FOLLOW UP INSTRUCTIONS GIVEN AND EXPLAINED TO PATIENT WHO STATES HE UNDERSTANDS ALL INSTRUCTIONS
== END 2021-01-02 18:03 | disposition home or self-care (01) ==
LOC: ER 16:53
DX: K59.09 Other constipation (principal); G20 Parkinson's disease; E11.43 Type 2 diabetes mellitus with diabetic autonomic (poly)neuropathy; K31.84 Gastroparesis; Z79.4 Long term (current) use of insulin; Z88.0 Allergy status to penicillin
CPT/HCPCS: 74018; A4663

== ENCOUNTER 2022-08-03 13:11 | Emergency (ER) | payer OTHER ==
[~2022-08-03] VITALS: Ht 167.6 cm; Wt 59.0 kg
--- NOTE | 2022-08-03 13:54 | NUR ---
PT IS IN ROOM #2A. DR JIMENEZ EVALUATED THE PT.
[2022-08-03 14:25] LABS: HEMATOCRIT 38.9 % (36.7-47.1); MEAN CORPUSCULAR HEMOGLOBIN 27.4 uug (23.8-33.4); MEAN CORPUSCULAR VOLUME 81.9 fL (73.0-96.2); PLATELET COUNT (AUTO) 248 K/uL (152-348)
[2022-08-03 15:06] LABS: CARBON DIOXIDE 32 mmol/L (21-32); CHLORIDE 100 mmol/L (98-107); CREATININE 1.3 mg/dL (0.6-1.3); GLUCOSE 130 mg/dL (74-106); POTASSIUM 4.2 mmol/L (3.5-5.1); UREA NITROGEN, BLOOD 24 mg/dL (7-18)
[2022-08-03 15:15] LABS: ALANINE AMINOTRANSFERASE 21 U/L (16-63); ALKALINE PHOSPHATASE 90 U/L (50-136); ASPARTATE AMINOTRANSFERASE 14 U/L (15-37); BILIRUBIN,DIRECT 0.1 mg/dL (0.0-0.2); BILIRUBIN,TOTAL 0.3 mg/dL (0.2-1.0); TOTAL PROTEIN, SERUM 6.7 g/dL (6.4-8.2)
[2022-08-03] MEDS ORDERED: ACETAMINOPHEN 650 MG/20.3 ML LIQUID UDC PO ONE (15:45)
[2022-08-03] MEDS ORDERED: LORAZEPAM 0.5 MG TABLET PO ONE (15:45)
[2022-08-03] MEDS ORDERED: CARBIDOPA/LEVODOPA 25-100MG TABLET PO STA (15:57)
[2022-08-03] MEDS ORDERED: FAMOTIDINE 20 MG TABLET PO ONE (16:00)
[2022-08-03] MEDS ORDERED: ASPIRIN 81 MG TAB.CHEW PO ONE (16:15)
[2022-08-03 16:25] LABS: *BILIRUBIN,URIN NEGATIVE (NEGATIVE); *BLOOD, URINE NEGATIVE (NEGATIVE); *CLARITY,URINE CLEAR (CLEAR); *COLOR,URINE YELLOW (YELLOW); *KETONES,URINE 1+ (NEGATIVE); *UROBILINOGEN,URINE 0.2 E.U./dl (NORMAL); LEUKOCYTE ESTERASE ,URINE NEGATIVE (NEGATIVE); NITRITE, URINE NEGATIVE (NEGATIVE); PH,URINE 6.5 (5.0-8.0); UGLUCOSE 2+ (NEGATIVE)
[2022-08-03] MEDS ORDERED: LORAZEPAM 1 MG TABLET ONE (16:37)
[2022-08-03] MEDS ORDERED: FAMOTIDINE 20 MG TABLET ONE (16:38)
[2022-08-03] MEDS ORDERED: CARBIDOPA/LEVODOPA 25-100MG TABLET ONE (16:38)
[2022-08-03] MEDS ORDERED: ACETAMINOPHEN 650 MG/20.3 ML LIQUID UDC ONE (16:38)
[2022-08-03] MEDS ORDERED: ASPIRIN 81 MG TAB.CHEW ONE (16:39)
[2022-08-03] MEDS ORDERED: ONDANSETRON 4 MG/2 ML VIAL ONE (16:41)
[2022-08-03] MEDS ORDERED: ONDANSETRON 4 MG/2 ML VIAL IV ONE (16:45)
--- NOTE | 2022-08-03 19:10 | NUR ---
change of shift report from Jacky BROWN
--- NOTE | 2022-08-03 19:15 | NUR ---
Aditi porter in EDM - 08/03/22 at 1928 by JOSE M Lockhart KAYLA called back. Patient will be transfered to [facility] room [address] Jasso call for report [phone] ALS ambulance ETA [id number]
--- NOTE | 2022-08-03 19:28 | NUR ---
[place] [facility] called back. Patient will be transfered to [facility] room [address] Jasso call for report [phone] ALS ambulance ETA 2000
--- NOTE | 2022-08-03 19:33 | NUR ---
patient is able to walk to the restroom with assistance
--- NOTE | 2022-08-03 19:42 | NUR ---
called Lockhart to give report, charge nurse will call back
--- NOTE | 2022-08-03 20:50 | NUR ---
Called [facility] to give report, no anwer
--- NOTE | 2022-08-03 21:15 | NUR ---
Patient Tranfers to outside Facility Physician: Louisa Location: [facility]
--- NOTE | 2022-08-03 21:24 | NUR ---
called Richy FALK. Change of bed. patient will be transfered to ROOM 5110 B
--- NOTE | 2022-08-03 21:37 | NUR ---
report given to Jose BROWN - [facility]
== END 2022-08-03 21:38 | disposition short-term general hospital (02) ==
LOC: ER 13:13
DX: R29.810 Facial weakness (principal); R20.0 Anesthesia of skin; R53.1 Weakness; G20 Parkinson's disease; N39.43 Post-void dribbling; Z79.4 Long term (current) use of insulin; E11.43 Type 2 diabetes mellitus with diabetic autonomic (poly)neuropathy; Z88.0 Allergy status to penicillin; Z79.899 Other long term (current) drug therapy; Z20.822 Contact with and (suspected) exposure to COVID-19
CPT/HCPCS: 99285; 96374; 70450; 71045; 87426; 80076; 80048; 81003; 82962 ×2; 85025; 87400; 87086; 84484 ×2; 36415; 93005; J2405; J7040; A4663

== ENCOUNTER 2022-08-09 19:41 | Emergency (ER) | payer OTHER ==
[~2022-08-09] VITALS: Ht 165.1 cm; Wt 61.2 kg
[2022-08-09] MEDS ORDERED: IV NORMAL SALINE 1000 ML BAG IV ONE (20:00)
[2022-08-09] MEDS ORDERED: ONDANSETRON 4 MG/2 ML VIAL IV ONE (20:00)
[2022-08-09] MEDS ORDERED: ONDANSETRON 4 MG/2 ML VIAL ONE (20:08)
[2022-08-09 20:11] LABS: HEMATOCRIT 37.1 % (36.7-47.1); MEAN CORPUSCULAR HEMOGLOBIN 27.4 uug (23.8-33.4); MEAN CORPUSCULAR VOLUME 82.5 fL (73.0-96.2); PLATELET COUNT (AUTO) 260 K/uL (152-348)
[2022-08-09 20:18] LABS: CREATININE 1.2 mg/dL (0.6-1.3); POTASSIUM 4.3 mmol/L (3.5-5.1)
[2022-08-09 20:24] LABS: *BILIRUBIN,URIN NEGATIVE (NEGATIVE); *BLOOD, URINE NEGATIVE (NEGATIVE); *CLARITY,URINE CLEAR (CLEAR); *COLOR,URINE YELLOW (YELLOW); *KETONES,URINE TRACE (NEGATIVE); *UROBILINOGEN,URINE 0.2 E.U./dl (NORMAL); LEUKOCYTE ESTERASE ,URINE NEGATIVE (NEGATIVE); NITRITE, URINE NEGATIVE (NEGATIVE); UGLUCOSE 3+ (NEGATIVE)
[2022-08-09 20:25] LABS: BILIRUBIN,DIRECT 0.1 mg/dL (0.0-0.2); BILIRUBIN,TOTAL 0.5 mg/dL (0.2-1.0)
[2022-08-09] MEDS ORDERED: ACETAMINOPHEN ES 500 MG TABLET ONE (20:29)
[2022-08-09] MEDS ORDERED: ACETAMINOPHEN ES 500 MG TABLET PO ONE (20:30)
[2022-08-09] MEDS ORDERED: PANTOPRAZOLE SODIUM IV 40 MG in IV DEXTROSE 5% 100 ML IV ONE (20:45)
[2022-08-09] MEDS ORDERED: PANTOPRAZOLE SODIUM 40 MG VIAL ONE (20:45)
[2022-08-09] MEDS ORDERED: MAG HYDROX/AL HYDROX/SIMETH 30 ML LIQUID UDC ONE (20:57)
[2022-08-09] MEDS ORDERED: MAGNESIUM HYDROXIDE 30 ML LIQUID UDC PO ONE (21:00)
--- NOTE | 2022-08-09 21:05 | NUR ---
Patient out of unit for ct scan via gurny.
--- NOTE | 2022-08-09 21:15 | NUR ---
Patient back from ct scan with no distress noted.
[2022-08-09] MEDS ORDERED: CYCLOBENZAPRINE HCL 10 MG TABLET ONE (21:24)
[2022-08-09] MEDS ORDERED: CYCLOBENZAPRINE HCL 10 MG TABLET PO ONE (21:30)
[2022-08-09] MEDS ORDERED: ONDA4TAB5 PO (21:38)
[2022-08-09] MEDS ORDERED: CYCL10TA9 PO (21:38)
--- NOTE | 2022-08-09 22:05 | NUR ---
IV removed. Catheter intact and site benign. Pressure and 4x4 gauze applied to site. No bleeding noted.
--- NOTE | 2022-08-09 22:11 | NUR ---
Patient discharged to home in stable condition with brother taking patient home. Written and verbal after care instructions given. Patient verbalizes understanding of instructions. Stressed follow up or return to ER for worsening s/s.
[2022-08-09 22:12] VITALS: BP 135/88
== END 2022-08-09 22:12 | disposition home or self-care (01) ==
LOC: ER 19:42
DX: R10.12 Left upper quadrant pain (principal); R11.2 Nausea with vomiting, unspecified; K59.00 Constipation, unspecified; R30.0 Dysuria; N40.0 Benign prostatic hyperplasia without lower urinary tract symptoms; Z20.822 Contact with and (suspected) exposure to COVID-19; E11.43 Type 2 diabetes mellitus with diabetic autonomic (poly)neuropathy; K31.84 Gastroparesis; Z79.4 Long term (current) use of insulin; G20 Parkinson's disease; Z88.0 Allergy status to penicillin; Z79.899 Other long term (current) drug therapy
CPT/HCPCS: 99284; 74176; 96374; 96361; 96375; 87426; 80076; 80048; 81003; 83690; 85025; 36415; J2405; C9113 ×2; J7040; A4663; A9150

== ENCOUNTER 2022-08-17 15:56 | Emergency (ER) | payer OTHER ==
[~2022-08-17] VITALS: Ht 165.1 cm; Wt 61.2 kg
[~2022-08-17 15:56] MED LIST changes: +CYCL10TA9 PO; +ONDA4TAB5 PO
--- NOTE | 2022-08-17 16:15 | NUR ---
Pt was triaged and placed in a gurney in the hallway because there are no ER beds available.
[2022-08-17] MEDS ORDERED: IV NORMAL SALINE 1000 ML BAG IV ONE (16:30)
--- NOTE | 2022-08-17 16:37 | NUR ---
Unable to place pt on cont monitor, pt is in the hallway.
--- NOTE | 2022-08-17 16:40 | NUR ---
Pt to CT via [facility].
[2022-08-17 17:12] LABS: CARBON DIOXIDE 31 mmol/L (21-32); CHLORIDE 99 mmol/L (98-107); CREATININE 1.4 mg/dL (0.6-1.3); GLUCOSE 197 mg/dL (74-106); POTASSIUM 4.3 mmol/L (3.5-5.1); UREA NITROGEN, BLOOD 25 mg/dL (7-18)
[2022-08-17 17:17] LABS: HEMATOCRIT 40.3 % (36.7-47.1); MEAN CORPUSCULAR HEMOGLOBIN 27.4 uug (23.8-33.4); PLATELET COUNT (AUTO) 297 K/uL (152-348)
[2022-08-17] MEDS ORDERED: ONDANSETRON 4 MG/2 ML VIAL ONE (17:52)
[2022-08-17] MEDS ORDERED: ONDANSETRON 4 MG/2 ML VIAL IV ONE (18:00)
--- NOTE | 2022-08-17 18:00 | NUR ---
Received report from lab, pt's lactic acid is 3.2. made aware.
--- NOTE | 2022-08-17 18:09 | NUR ---
Daniel from [facility] called and ask for pt's V/S. Pt's physician is Dr. Lino.
--- NOTE | 2022-08-17 18:48 | NUR ---
Pt refused to have heart monitor, BP cuff and pulse oximeter in place.
--- NOTE | 2022-08-17 19:11 | NUR ---
Endorsed to Kailee BROWN.
[2022-08-17 19:29] LABS: BILIRUBIN,DIRECT 0.2 mg/dL (0.0-0.2); BILIRUBIN,TOTAL 0.7 mg/dL (0.2-1.0)
[2022-08-17] MEDS ORDERED: METOCLOPRAMIDE HCL 10 MG/2 ML VIAL IV ONE (19:45)
[2022-08-17] MEDS ORDERED: METOCLOPRAMIDE HCL 10 MG/2 ML VIAL ONE (19:47)
--- NOTE | 2022-08-17 22:30 | NUR ---
Patient does not wish to proceed with medical care recommended by Dr. Abigail ( ). Patient given information related to possible complications, up to and including , which could occur as a result of leaving the hospital at this time. Patient verbalizes understanding of risks involved due to leaving against medical advice. Patient has signed AMA form.
[2022-08-18 01:58] VITALS: BP 136/70
== END 2022-08-17 22:30 | disposition left against medical advice (07) ==
LOC: ER 15:58
DX: E10.43 Type 1 diabetes mellitus with diabetic autonomic (poly)neuropathy (principal); K31.84 Gastroparesis; Z79.4 Long term (current) use of insulin; Z88.0 Allergy status to penicillin; G20 Parkinson's disease; E10.65 Type 1 diabetes mellitus with hyperglycemia; R53.1 Weakness; N28.9 Disorder of kidney and ureter, unspecified; Z53.29 Procedure and treatment not carried out because of patient's decision for other reasons
CPT/HCPCS: 99285; 96374; 70450; 71045; 96361; 80048; 82247; 82248; 85025; 85651; 85730; 84484; 36415; 93005; 83605 ×2; J2405; A4663; J2765

== ENCOUNTER 2023-11-02 13:30 | Emergency (ER) | payer OTHER, MEDICAID ==
[~2023-11-02] VITALS: Ht 162.6 cm; Wt 63.5 kg
[2023-11-02] MEDS ORDERED: PROCHLORPERAZINE EDISYLATE 10 MG/2 ML VIAL ONE (13:44)
[2023-11-02 13:57] LABS: DIFFERENTIAL COMMENT 0
[2023-11-02 13:59] LABS: EOSINOPHILS # (AUTO) 0.1 K/uL (0.0-0.7); LYMPHOCYTES # (AUTO) 1.9 K/uL (0.8-4.8); MEAN CORPUSCULAR HGB CONC 34 g/dL (32.5-36.3); MONOCYTES # (AUTO) 0.5 K/uL (0.1-1.30); NEUTROPHILS % (AUTO) 62.8 % (38.5-71.5)
[2023-11-02 14:03] LABS: ALBUMIN 3.5 g/dL (3.4-5.0); BILIRUBIN,TOTAL 0.4 mg/dL (0.2-1.0); CALCIUM 9.1 mg/dL (8.5-10.1); CREATININE 1.3 mg/dL (0.6-1.3); MAGNESIUM 1.9 mg/dL (1.8-2.4); POTASSIUM 4.5 mmol/L (3.5-5.1)
[2023-11-02 14:05] LABS: BASOPHILS % (AUTO) 0.4 % (0.0-2.0); EOSINOPHILS % (AUTO) 0.9 % (0.0-7.0); HEMOGLOBIN 12.8 g/dL (12.5-16.3); LYMPHOCYTES % (AUTO) 28.4 % (20.5-51.5); MEAN CORPUSCULAR HEMOGLOBIN 26.5 uug (23.8-33.4); MEAN CORPUSCULAR VOLUME 78.7 fL (73.0-96.2); MONOCYTES % (AUTO) 7.5 % (0.0-11.0); NEUTROPHILS # (AUTO) 4.2 K/uL (1.8-8.9); PLATELET COUNT (AUTO) 241 K/uL (152-348); RED BLOOD CELL COUNT(AUTO) 4.83 MIL/uL (4.06-5.63); WHITE BLOOD COUNT (AUTO) 6.7 K/uL (3.6-10.2)
[2023-11-02] MEDS: IV NS 1000 ML 1,000 ML IV ONE (14:06)
[2023-11-02] MEDS: PROCHLORPERAZINE EDISYLATE 10 MG/2 ML VIAL IV ONE (14:06)
[2023-11-02] MEDS ORDERED: MAG HYDROX/AL HYDROX/SIMETH 30 ML LIQUID UDC ONE (15:15)
[2023-11-02] MEDS: MAGNESIUM HYDROXIDE 30 ML LIQUID UDC PO ONE (15:19)
[2023-11-02] MEDS ORDERED: FLAS1EAC2 TP (16:03)
[2023-11-02] MEDS ORDERED: ACET1TAB23 PO (16:03)
[2023-11-02] MEDS ORDERED: FLAS1KIT2 TP (16:03)
[2023-11-02 16:48] VITALS: BP 128/77; O2SAT 98
== END 2023-11-02 16:48 | disposition home or self-care (01) ==
LOC: ER 13:37
DX: E10.65 Type 1 diabetes mellitus with hyperglycemia (principal); G20.A1 Parkinson's disease without dyskinesia, without mention of fluctuations; R11.2 Nausea with vomiting, unspecified; K59.00 Constipation, unspecified; R10.9 Unspecified abdominal pain; Z79.4 Long term (current) use of insulin; Z79.899 Other long term (current) drug therapy; Z88.0 Allergy status to penicillin
CPT/HCPCS: 99285; 74176; 96374; 96361; 80053; 83690; 83735; 85025; 84484; 93005; J0780; J7040; A4606; A4663

== ENCOUNTER 2025-01-20 19:03 | Emergency (ER) | payer OTHER, MEDICAID ==
[~2025-01-20] VITALS: Ht 162.6 cm; Wt 70.8 kg
[~2025-01-20 19:03] MED LIST changes: +ACET1TAB23 PO; +FLAS1EAC2 TP; +FLAS1KIT2 TP
[2025-01-20 19:05] VITALS: O2SAT 98
[2025-01-20] MEDS: IV NORMAL SALINE 1000 ML BAG IV ONE (19:43)
== END 2025-01-20 20:00 | disposition left against medical advice (07) ==
LOC: ER 19:22
DX: R53.1 Weakness (principal); E11.9 Type 2 diabetes mellitus without complications; G20.A1 Parkinson's disease without dyskinesia, without mention of fluctuations; Z79.4 Long term (current) use of insulin; Z79.899 Other long term (current) drug therapy; Z88.0 Allergy status to penicillin; Z88.7 Allergy status to serum and vaccine; Z53.21 Procedure and treatment not carried out due to patient leaving prior to being seen by health care provider
CPT/HCPCS: A4606; A4663